=== PATIENT | female | born 1995 | race American Indian/Alaskan Native ===

== ENCOUNTER 2017-03-22 00:34 | Emergency (ER) | payer MEDICAID, OTHER ==
[2017-03-22 01:16] VITALS: BP 122/70
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
== END 2017-03-22 02:21 | disposition home or self-care (01) ==
LOC: DL.ED 00:34
DX: S00.03XA Contusion of scalp, initial encounter (principal); M25.511 Pain in right shoulder; Y04.0XXA Assault by unarmed brawl or fight, initial encounter
CPT/HCPCS: 99283

== ENCOUNTER 2020-07-24 19:53 | Emergency (ER) | payer OTHER, MEDICAID ==
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
[2020-07-25] MEDS ORDERED: Ibuprofen 600 MG Tab PO ONE (00:32)
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
== END 2020-07-25 00:48 | disposition home or self-care (01) ==
LOC: DL.ED 19:53
DX: M62.838 Other muscle spasm (principal); Z88.2 Allergy status to sulfonamides; V49.49XA Driver injured in collision with other motor vehicles in traffic accident, initial encounter
CPT/HCPCS: 72020; 81025; 99284-25

== ENCOUNTER 2020-07-31 18:38 | Emergency (ER) | payer MEDICAID ==
[2020-07-31 19:06] VITALS: BP 114/60; PULSE 108
--- NOTE | 2020-07-31 19:17 | EDM.PDOC ---
ED HPI GENERAL MEDICAL PROBLEM - General Chief Complaint: Gastrointestinal Problem Stated Complaint: FOOD POISONING Time Seen by Provider: 07/31/20 18:56 Source of Information: Reports: Patient History Limitations: Reports: No Limitations - History of Present Illness INITIAL COMMENTS - FREE TEXT/NARRATIVE: This 25 yo female patient reports to the ED due to not feeling well since last night. The patient believes she got food poisoning from eating at [facility] last night. The patient reports she has had a fever of 100-101 throughout the day and has taken 1 dose of Acetaminophen (at noon). The patient has not attempted to get seen in the clinic for her current symptoms. The patient was seen for kidney stones 2 days ago and is currently on Toradol/Flomax. 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 - Related Data Allergies Allergy/AdvReac Type Severity Reaction Status Date / Time Sulfa (Sulfonamide Allergy Other Verified 07/29/20 17:00 Antibiotics) Past Medical History - Past Health History Medical/Surgical History: Denies Medical/Surgical History HEENT History: Reports: None Cardiovascular History: Reports: None Respiratory History: Reports: None Gastrointestinal History: Reports: None Genitourinary History: Reports: None 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 Musculoskeletal History: Reports: None Neurological History: Reports: None Psychiatric History: Reports: None Endocrine/Metabolic History: Reports: None Hematologic History: Reports: Anemia Other Hematologic History: durning Immunologic History: Reports: None Oncologic (Cancer) History: Reports: None Dermatologic History: Reports: None - Infectious Disease History Infectious Disease History: Reports: Chicken Pox - Past Surgical History Head Surgeries/Procedures: Reports: None Dermatological Surgical History: Reports: None Social & Family History - Tobacco Use Tobacco Use Status *Q: Unknown Ever Used Tobacco - Caffeine Use Caffeine Use: Reports: None - Recreational Drug Use Recreational Drug Use: No ED ROS GENERAL - Review of Systems Review Of Systems: Comprehensive ROS is negative, except as noted in HPI. ED EXAM, GI/ABD - Physical Exam Exam: See Below Exam Limited By: No Limitations General Appearance: Alert, WD/WN, Mild Distress, Obese Eyes: Bilateral: Normal Appearance, EOMI Ears: Normal External Exam, Normal Canal, Hearing Grossly Normal, Normal TMs Nose: Normal Inspection, Normal Mucosa, No Blood Throat/Mouth: Normal Inspection, Normal Lips, Normal Teeth, Normal Gums, Normal Oropharynx, Normal Voice, No Airway Compromise Head: Atraumatic, Normocephalic Neck: Normal Inspection, Supple, Non-Tender, Full Range of Motion Respiratory/Chest: No Respiratory Distress, Lungs Clear, Normal Breath Sounds, No Accessory Muscle Use, Chest Non-Tender Cardiovascular: Normal Peripheral Pulses, Regular Rate, Rhythm, No Edema, No Gallop, No JVD, No Murmur, No Rub GI/Abdominal Exam: Normal Bowel Sounds, Soft, Non-Tender, No Organomegaly, No Distention, No Abnormal Bruit, No Mass, Pelvis Stable, Other (Obese) (Female) Exam: Deferred Rectal (Female) Exam: Deferred Back Exam: Normal Inspection, Full Range of Motion, NT Extremities: Normal Inspection, Normal Range of Motion, Non-Tender, Normal Capillary Refill, No Pedal Edema Neurological: Alert, Oriented, CN II-XII Intact, Normal Cognition, Normal Gait, Normal Reflexes, No Motor/Sensory Deficits Psychiatric: Normal Affect, Normal Mood Skin Exam: Warm, Dry, Intact, Normal Color, No Rash Lymphatic: No Adenopathy Course - Vital Signs Last Recorded V/S: Last Vital Signs Temp 36.4 C 07/31/20 19:03 Pulse 108 H 07/31/20 19:03 Resp 16 07/31/20 19:03 BP 114/60 07/31/20 19:03 Pulse Ox 98 07/31/20 19:03 - Orders/Labs/Meds Orders: Active Orders 24 hr Category Date Time Status CULTURE URINE [RM] Stat Lab 07/31/20 20:16 Received Labs: Laboratory Tests 07/31/20 07/31/20 07/31/20 Range/Units 19:25 19:25 20:16 WBC 14.4 H (5.0-10.0) 10^3/uL RBC 4.68 (4.2-5.4) 10^6/uL Hgb 12.5 (12.0-16.0) g/dL Hct 37.7 (37.0-47.0) % MCV 80.6 (80-100) fL MCH 26.7 L (27.0-34.0) pg MCHC 33.2 (33.0-35.0) g/dL Plt Count 279 (150-450) 10^3/uL Neut % (Auto) 85.6 H (42.2-75.2) % Lymph % (Auto) 8.7 L (20.5-50.1) % [place] % (Auto) 5.5 (2-8) % Eos % (Auto) 0.1 L (1.0-3.0) % Baso % (Auto) 0.1 (0.0-1.0) % Sodium 133 L (136-145) mmol/L Potassium 3.6 (3.5-5.1) mmol/L Chloride 99 (98-107) mmol/L Carbon Dioxide 21 (21-32) mmol/L Anion Gap 16.6 H (7-13) mEq/L BUN 13 (7-18) mg/dL Creatinine 1.31 H (0.55-1.02) mg/dL Est Cr Clr Drug Dosing 53.83 mL/min Estimated GFR (MDRD) 49 BUN/Creatinine Ratio 9.9 (No establ ref range) Glucose 107 H (74-99) mg/dL Calcium 9.1 (8.5-10.1) mg/dL Total Bilirubin 1.8 H (0.2-1.0) mg/dL AST 16 (15-37) U/L ALT 32 (14-59) U/L Alkaline Phosphatase 103 (46-116) U/L Total Protein 8.2 (6.4-8.2) g/dL Albumin 3.9 (3.4-5.0) g/dL Globulin 4.3 Albumin/Globulin Ratio 0.9 Urine Color Dark yellow (YELLOW) Urine Appearance Slightly cloudy (CLEAR) Urine pH 6.0 (5.0-9.0) Ur Specific [place] >= 1.030 (1.005-1.030) Urine Protein 100 H (NEGATIVE) Urine Glucose (UA) Negative (NEGATIVE) Urine Ketones 80 H (NEGATIVE) Urine Occult Blood Trace-lysed H (NEGATIVE) Urine Nitrite Negative (NEGATIVE) Urine Bilirubin Small H (NEGATIVE) Urine Urobilinogen 2.0 H (0.2-1.0) mg/dL Ur Leukocyte Esterase Trace H (NEGATIVE) Urine RBC 0-5 /HPF Urine WBC 50-75 H (0-5/HPF) /HPF Ur Epithelial Cells Many H (NOT SEEN) /HPF Urine Bacteria Many H (0-FEW/HPF) /HPF Urine Mucus Moderate H (NOT SEEN) /LPF Urine Other See note Urine HCG, Qual 07/31/20 Range/Units 20:16 WBC (5.0-10.0) 10^3/uL RBC (4.2-5.4) 10^6/uL Hgb (12.0-16.0) g/dL Hct (37.0-47.0) % MCV (80-100) fL MCH (27.0-34.0) pg MCHC (33.0-35.0) g/dL Plt Count (150-450) 10^3/uL Neut % (Auto) (42.2-75.2) % Lymph % (Auto) (20.5-50.1) % [place] % (Auto) (2-8) % Eos % (Auto) (1.0-3.0) % Baso % (Auto) (0.0-1.0) % Sodium (136-145) mmol/L Potassium (3.5-5.1) mmol/L Chloride (98-107) mmol/L Carbon Dioxide (21-32) mmol/L Anion Gap (7-13) mEq/L BUN (7-18) mg/dL Creatinine (0.55-1.02) mg/dL Est Cr Clr Drug Dosing mL/min Estimated GFR (MDRD) BUN/Creatinine Ratio (No establ ref range) Glucose (74-99) mg/dL Calcium (8.5-10.1) mg/dL Total Bilirubin (0.2-1.0) mg/dL AST (15-37) U/L ALT (14-59) U/L Alkaline Phosphatase (46-116) U/L Total Protein (6.4-8.2) g/dL Albumin (3.4-5.0) g/dL Globulin Albumin/Globulin Ratio Urine Color (YELLOW) Urine Appearance (CLEAR) Urine pH (5.0-9.0) Ur Specific [place] (1.005-1.030) Urine Protein (NEGATIVE) Urine Glucose (UA) (NEGATIVE) Urine Ketones (NEGATIVE) Urine Occult Blood (NEGATIVE) Urine Nitrite (NEGATIVE) Urine Bilirubin (NEGATIVE) Urine Urobilinogen (0.2-1.0) mg/dL Ur Leukocyte Esterase (NEGATIVE) Urine RBC /HPF Urine WBC (0-5/HPF) /HPF Ur Epithelial Cells (NOT SEEN) /HPF Urine Bacteria (0-FEW/HPF) /HPF Urine Mucus (NOT SEEN) /LPF Urine Other Urine HCG, Qual Negative Meds: Medications Discontinued Medications Generic Name Dose Route Start Last Admin Trade Name Freq PRN Reason Stop Dose Admin Cephalexin 500 mg 07/31/20 20:44 Keflex PO 07/31/20 20:45 ONETIME ONE Departure - Departure Time of Disposition: 20:45 Disposition: Home, Self-Care 01 Condition: Fair Clinical Impression: UTI (urinary tract infection) Qualifiers: Urinary tract infection type: site unspecified Hematuria presence: with hematuria Qualified Code(s): N39.0 - Urinary tract infection, site not specified; R31.9 - Hematuria, unspecified - Discharge Information *PRESCRIPTION DRUG MONITORING PROGRAM REVIEWED*: Not Applicable *COPY OF PRESCRIPTION DRUG MONITORING REPORT IN PATIENT KAYA: Not Applicable Instructions: Urinary Tract Infection, Adult, [id number] Forms: ED Department Discharge Care Plan Goals: The patient was advised of the examination and lab results during the visit. The patient was given an oral dose of Keflex while in the ED. The patient was discharged with a script for Keflex (500 mg) #10 to take 1 by mouth 2 times per day for 7 days. If the patient has any additional symptoms or concerns, the patient should follow-up with her primary care facility or return to the emergency department. Sepsis Event Note (ED) - Evaluation Sepsis Screening Result: No Definite Risk - Focused Exam Vital Signs: Vital Signs Temp Pulse Resp BP Pulse Ox 07/31/20 19:03 36.4 C 108 H 16 114/60 98 - My Orders Last 24 Hours: My Active Orders 07/31/20 20:16 CULTURE URINE [RM] Stat - Assessment/Plan Last 24 Hours: My Active Orders 07/31/20 20:16 CULTURE URINE [RM] Stat
[2020-07-31 19:47] LABS: ANION GAP 16.6 mEq/L (7-13)
[2020-07-31] MEDS ORDERED: Cephalexin 500 MG Cap PO ONE (20:44)
== END 2020-07-31 20:59 | disposition home or self-care (01) ==
LOC: DL.ED 18:38
DX: N39.0 Urinary tract infection, site not specified (principal); R31.9 Hematuria, unspecified; Z88.2 Allergy status to sulfonamides
CPT/HCPCS: 36415; 80053; 81001; 81025; 85025; 87086; 87088; 87186; 99283; A9270

== ENCOUNTER 2021-01-23 17:22 | Emergency (ER) | payer MEDICAID ==
[2021-01-23 17:48] VITALS: BP 146/69; PULSE 72
[2021-01-23] MEDS ORDERED: Iopamidol 612 MG/ML 100 ML Bottle IVPUSH ONE (18:46)
--- NOTE | 2021-01-23 18:59 | EDM.PDOC ---
"Scribed by Megan Garrison 01/23/21 1828 for Maddie Morales MD <Maddie Morales - Last Filed: 01/23/21 18:59> ED HPI GENERAL MEDICAL PROBLEM - General Chief Complaint: Genitourinary Problem Stated Complaint: POSSIBLE MISCARRIAGE Time Seen by Provider: 01/23/21 17:54 Source of Information: Reports: Patient, RN, RN Notes Reviewed History Limitations: Reports: No Limitations - History of Present Illness INITIAL COMMENTS - FREE TEXT/NARRATIVE: Patient presents to ED by POV stating that on 01/17/21 she had a gush of clear vaginal fluid. On 01/18/21 she had red blood with clots. Today she has had cramps and brownish blood, nausea and right lower abdominal sharp pain. LMP was 4 months ago, irregular since IUD placed in August 2019. Onset: Gradual Duration: Getting Worse Location: Reports: Abdomen Quality: Reports: Ache Severity: Moderate Improves with: Reports: None Worsens with: Reports: None Associated Symptoms: Reports: No Other Symptoms - Related Data Allergies Allergy/AdvReac Type Severity Reaction Status Date / Time Sulfa (Sulfonamide Allergy Other Verified 01/23/21 17:37 Antibiotics) Home Meds: Home Meds . 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 Musculoskeletal History: Reports: None Neurological History: Reports: None Psychiatric History: Reports: None Endocrine/Metabolic History: Reports: None Hematologic History: Reports: Anemia Other Hematologic History: durning Immunologic History: Reports: None Oncologic (Cancer) History: Reports: None Dermatologic History: Reports: None - Infectious Disease History Infectious Disease History: Reports: Chicken Pox - Past Surgical History Head Surgeries/Procedures: Reports: None Dermatological Surgical History: Reports: None Social & Family History - Family History Family Medical History: No Pertinent Family History - Caffeine Use Caffeine Use: Reports: None - Living Situation & Occupation Living situation: Reports: , with Family Occupation: Employed ED ROS GENERAL - Review of Systems Review Of Systems: Comprehensive ROS is negative, except as noted in HPI. ED EXAM, RENAL/ - Physical Exam Exam: See Below Exam Limited By: No Limitations General Appearance: Alert, WD/WN, No Apparent Distress, Obese Throat/Mouth: Normal Voice, No Airway Compromise Head: Atraumatic, Normocephalic Neck: Normal Inspection Respiratory/Chest: No Respiratory Distress, Lungs Clear, Normal Breath Sounds, No Accessory Muscle Use, Chest Non-Tender Cardiovascular: Regular Rate, Rhythm, No Edema GI/Abdominal: Normal Bowel Sounds, Soft, Non-Tender (Female) Exam: Deferred Rectal (Female) Exam: Deferred Back Exam: Normal Inspection, Full Range of Motion. No: CVA Tenderness (L), CVA Tenderness (R) Extremities: Normal Inspection Neurological: Alert, Oriented, No Motor/Sensory Deficits Psychiatric: Normal Affect, Normal Mood Skin Exam: Warm, Dry, Intact, Normal Color, No Rash Course - Orders/Labs/Meds Labs: Blood Type: A positive Departure - Departure Disposition: Home, Self-Care 01 Clinical Impression: Bladder calculus, Renal calculus, left Acute cystitis Qualifiers: Hematuria presence: with hematuria Qualified Code(s): N30.01 - Acute cystitis with hematuria - Discharge Information Instructions: Kidney Stones, [id number], Dietary Guidelines to Help Prevent Kidney Stones Forms: ED Department Discharge Additional Instructions: Rx: Flomax Rx: ketorolac Rx: amoxicillin 1.) Take all of your antibiotic until gone, even as symptoms improve. 2.) Drink plenty of water to stay hydrated and flush out your kidneys/bladder. 3.) Follow up with primary care provider regarding IUD and contraception management. 4.) Follow up with primary care provider, or return to the emergency department, with inability to urinate, fever, or shaking chills. <Randi Malone - Last Filed: 01/23/21 20:54> Course - Vital Signs Last Recorded V/S: Last Vital Signs Temp 97.3 F 01/23/21 17:37 Pulse 72 01/23/21 17:37 Resp 18 01/23/21 17:37 BP 146/69 H 01/23/21 17:37 Pulse Ox 99 01/23/21 17:37 - Orders/Labs/Meds Orders: Active Orders 24 hr Category Date Time Status CULTURE URINE [RM] Stat Lab 01/23/21 17:35 Received Labs: Laboratory Tests 01/23/21 01/23/21 01/23/21 Range/Units 17:35 17:35 18:13 WBC 7.1 (5.0-10.0) 10^3/uL RBC 4.76 (4.2-5.4) 10^6/uL Hgb 12.6 (12.0-16.0) g/dL Hct 39.2 (37.0-47.0) % MCV 82.4 (80-100) fL MCH 26.5 L (27.0-34.0) pg MCHC 32.1 L (33.0-35.0) g/dL Plt Count 366 D (150-450) 10^3/uL Neut % (Auto) 62.4 (42.2-75.2) % Lymph % (Auto) 31.1 (20.5-50.1) % [place] % (Auto) 4.5 (2-8) % Eos % (Auto) 1.6 (1.0-3.0) % Baso % (Auto) 0.4 (0.0-1.0) % HCG, Quant (0-6) mIU/mL Urine Color Yellow (YELLOW) Urine Appearance Slightly cloudy (CLEAR) Urine pH 5.5 (5.0-9.0) Ur Specific [place] >= 1.030 (1.005-1.030) Urine Protein Negative (NEGATIVE) Urine Glucose (UA) Negative (NEGATIVE) Urine Ketones Negative (NEGATIVE) Urine Occult Blood Moderate H (NEGATIVE) Urine Nitrite Negative (NEGATIVE) Urine Bilirubin Negative (NEGATIVE) Urine Urobilinogen 1.0 (0.2-1.0) mg/dL Ur Leukocyte Esterase Trace H (NEGATIVE) Urine RBC 0-5 /HPF Urine WBC 30-40 H (0-5/HPF) /HPF Ur Epithelial Cells Moderate H (NOT SEEN) /HPF Urine Bacteria Moderate H (0-FEW/HPF) /HPF Urine Mucus Moderate H (NOT SEEN) /LPF Urine HCG, Qual Negative 01/23/21 Range/Units 18:13 WBC (5.0-10.0) 10^3/uL RBC (4.2-5.4) 10^6/uL Hgb (12.0-16.0) g/dL Hct (37.0-47.0) % MCV (80-100) fL MCH (27.0-34.0) pg MCHC (33.0-35.0) g/dL Plt Count (150-450) 10^3/uL Neut % (Auto) (42.2-75.2) % Lymph % (Auto) (20.5-50.1) % [place] % (Auto) (2-8) % Eos % (Auto) (1.0-3.0) % Baso % (Auto) (0.0-1.0) % HCG, Quant < 1 (0-6) mIU/mL Urine Color (YELLOW) Urine Appearance (CLEAR) Urine pH (5.0-9.0) Ur Specific [place] (1.005-1.030) Urine Protein (NEGATIVE) Urine Glucose (UA) (NEGATIVE) Urine Ketones (NEGATIVE) Urine Occult Blood (NEGATIVE) Urine Nitrite (NEGATIVE) Urine Bilirubin (NEGATIVE) Urine Urobilinogen (0.2-1.0) mg/dL Ur Leukocyte Esterase (NEGATIVE) Urine RBC /HPF Urine WBC (0-5/HPF) /HPF Ur Epithelial Cells (NOT SEEN) /HPF Urine Bacteria (0-FEW/HPF) /HPF Urine Mucus (NOT SEEN) /LPF Urine HCG, Qual Meds: Medications Discontinued Medications Generic Name Dose Route Start Last Admin Trade Name Wojciech PRN Reason Stop Dose Admin Iopamidol 100 ml 01/23/21 18:46 01/23/21 19:13 Iopamidol 612 Mg/Ml 100 Ml Bottle IVPUSH 01/23/21 18:47 100 ml ONETIME ONE Administration - Radiology Interpretation Free Text/Narrative:: [facility] Final Radiology Report Call: [phone] assistance Online chat: [email or web address] Name: CHARLES US Age: 25Years F Date: 01/23/2021 SSN: -- : [id number] Study: CT ABDOMEN PELVIS W CONT Requesting Physician: MADDIE MORALES Images: [id number] Addl Studies: Provided Clinical History: RLQ pain, vaginal bleeding, negative Contrast: With Contrast Medium: [id number] Contrast Amount: 100 mL Contrast Method: Intravenous (IV) Page 1 of 2 PROCEDURE INFORMATION: Exam: CT Abdomen And Pelvis With Contrast Exam date and time: 01/23/2021 7:41 PM Age: 25 years old Clinical indication: Other: Low abd pain; Additional info: Rlq pain, vaginal bleeding, negative TECHNIQUE: Imaging protocol: Computed tomography of the abdomen and pelvis with contrast. Radiation optimization: All CT scans at this facility use at least one of these dose optimization techniques: automated exposure control; mA and/or kV adjustment per patient size (includes targeted exams where dose is matched to clinical indication); or iterative reconstruction. Contrast material: [id number]; Contrast volume: 100 ml; Contrast route: INTRAVENOUS (IV); COMPARISON: CT Abdomen Pelvis wo Cont 07/29/2020 6:15 PM FINDINGS: Liver: ThereThere is moderate fatty liver replacement. No suspicious hepatic mass. Gallbladder and bile ducts: No calcified gallstones. No ductal dilation. Pancreas: The pancreatic parenchyma is normal in bulk and sharply marginated. Duct is not dilated. No calcifications, masses, or abnormal fluid collections. Spleen: Spleen is normal in size. No mass or fluid collection. Adrenal glands: There are no adrenal masses. Kidneys and ureters: Normal in parenchymal bulk. No hydronephrosis or asymmetric perinephric stranding. No solid masses. Nonobstructing 3 mm calcification in the left renal sinus. No ureteral calculi. Stomach and bowel: No significant abnormalities of the stomach. There are no dilated or thickened small bowel loops. Gas and stool are seen in the colon to the rectum. No mass. Appendix: The appendix is seen. It is normal. CHARLES US | Final Radiology Report CONFIDENTIALITY STATEMENT This report is intended only for use by the referring physician, and only in accordance with law. If you received this in error, call [phone]. Page 2 of 2 Intraperitoneal space: No ascites. No abscess. No inflammation within the intra- abdominal fat. No pneumoperitoneum. No mass. No ascites. No abscess. No inflammation within the intra-abdominal fat. No pneumoperitoneum. No mass. Vasculature: No aneurysm. Lymph nodes: There are no enlarged celiac, mesenteric, periportal, extraperitone al or inguinal lymph nodes. Urinary bladder: 4 mm calcification which was not present on the previous study resides in the bladder lumen along the posterior left paramidline bladder wall. Bladder otherwise unremarkable. Reproductive: The uterus and ovaries are within normal limits. There are no adenexal masses. 3.5 cm benign functional cyst left ovary requiring no further workup according to guidelines. There is an intrauterine device askew within the lower uterine segment and cervix. It may even extend into the cephalad vagina. 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 No dislocation. There are no suspicious lytic or osteosclerotic lesions. Soft tissues: There is a fat-containing umbilical hernia. IMPRESSION: 1. 4 mm bladder calculus. Urinary bladder otherwise unremarkable. 2. There is an intrauterine device askew within the lower uterine segment and cervix. It may even extend into the cephalad vagina. It is in similar position as before. Thank you for allowing us to participate in the care of your patient. Dictated and Authenticated by: Onur Gallagher MD 01/23/2021 8:20 PM Central Time ([place] & [place]) Departure - Departure Time of Disposition: 20:49 Condition: Good - Discharge Information *PRESCRIPTION DRUG MONITORING PROGRAM REVIEWED*: Not Applicable *COPY OF PRESCRIPTION DRUG MONITORING REPORT IN PATIENT KAYA: Not Applicable Sepsis Event Note (ED) - Focused Exam Vital Signs: Vital Signs Temp Pulse Resp BP Pulse Ox 01/23/21 17:37 97.3 F 72 18 146/69 H 99 I have read and agree with the documentation that has been completed regarding this visit. By signing this record, I attest that the documentation was completed in my physical presence and is an accurate record of the encounter."
--- NOTE | 2021-01-23 20:21 | CT ---
PROCEDURE INFORMATION: Exam: CT Abdomen And Pelvis With Contrast Exam date and time: 01/23/2021 7:41 PM Age: 25 years old Clinical indication: Other: Low abd pain; Additional info: Rlq pain, vaginal bleeding, negative TECHNIQUE: Imaging protocol: Computed tomography of the abdomen and pelvis with contrast. Radiation optimization: All CT scans at this facility use at least one of these dose optimization techniques: automated exposure control; mA and/or kV adjustment per patient size (includes targeted exams where dose is matched to clinical indication); or iterative reconstruction. Contrast material: [id number]; Contrast volume: 100 ml; Contrast route: INTRAVENOUS (IV); COMPARISON: CT Abdomen Pelvis wo Cont 07/29/2020 6:15 PM FINDINGS: Liver: ThereThere is moderate fatty liver replacement. No suspicious hepatic mass. Gallbladder and bile ducts: No calcified gallstones. No ductal dilation. Pancreas: The pancreatic parenchyma is normal in bulk and sharply marginated. Duct is not dilated. No calcifications, masses, or abnormal fluid collections. Spleen: Spleen is normal in size. No mass or fluid collection. Adrenal glands: There are no adrenal masses. Kidneys and ureters: Normal in parenchymal bulk. No hydronephrosis or asymmetric perinephric stranding. No solid masses. Nonobstructing 3 mm calcification in the left renal sinus. No ureteral calculi. Stomach and bowel: No significant abnormalities of the stomach. There are no dilated or thickened small bowel loops. Gas and stool are seen in the colon to the rectum. No mass. Appendix: The appendix is seen. It is normal. Intraperitoneal space: No ascites. No abscess. No inflammation within the intra-abdominal fat. No pneumoperitoneum. No mass. No ascites. No abscess. No inflammation within the intra-abdominal fat. No pneumoperitoneum. No mass. Vasculature: No aneurysm. Lymph nodes: There are no enlarged celiac, mesenteric, periportal, extraperitoneal or inguinal lymph nodes. Urinary bladder: 4 mm calcification which was not present on the previous study resides in the bladder lumen along the posterior left paramidline bladder wall. Bladder otherwise unremarkable. Reproductive: The uterus and ovaries are within normal limits. There are no adenexal masses. 3.5 cm benign functional cyst left ovary requiring no further workup according to guidelines. There is an intrauterine device askew within the lower uterine segment and cervix. It may even extend into the cephalad vagina. 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 No dislocation. There are no suspicious lytic or osteosclerotic lesions. Soft tissues: There is a fat-containing umbilical hernia. IMPRESSION: 1. 4 mm bladder calculus. Urinary bladder otherwise unremarkable. 2. There is an intrauterine device askew within the lower uterine segment and cervix. It may even extend into the cephalad vagina. It is in similar position as before.
[2021-01-23] MEDS ORDERED: Tamsulosin 0.4 MG Cap.ER PO ONE (20:40)
[2021-01-23] MEDS ORDERED: Ketorolac 30 MG/ML SDV IVPUSH ONE (20:41)
[2021-01-23] MEDS ORDERED: Amoxicillin 500 MG Cap PO ONE (20:45)
== END 2021-01-23 21:00 | disposition home or self-care (01) ==
LOC: DL.ED 17:22
DX: N30.01 Acute cystitis with hematuria (principal); N21.0 Calculus in bladder; N20.0 Calculus of kidney; E66.9 Obesity, unspecified; Z68.42 Body mass index [BMI] 45.0-49.9, adult; Z88.2 Allergy status to sulfonamides
CPT/HCPCS: 36415; 74177; 81001; 81025; 84702; 85025; 87086; 96374; 99284; A9270; J1885; Q9967

== ENCOUNTER 2022-01-05 11:20 | Inpatient (IN) | payer MEDICAID ==
[2022-01-05] MEDS ORDERED: Lidocaine 1% 30 ML SDV INJECT PRN (12:37)
[2022-01-05] MEDS ORDERED: Tranexamic Acid 1,000 MG in Sodium Chloride 0.9% 100 ML IV PRN (12:37)
[2022-01-05] MEDS ORDERED: Lactated Ringers 1,000 ML IV ONE (12:37)
[2022-01-05] MEDS ORDERED: Carboprost Tromethamine 250 MCG/1 ML Amp IM PRN (12:37)
[2022-01-05] MEDS ORDERED: Misoprostol 400 MCG (4 X 100 MCG TAB) RECTAL PRN (12:37)
[2022-01-05] MEDS ORDERED: Sodium Chloride 0.9% 10 ML Syringe FLUSH PRN ×2 (12:37→16:34)
[2022-01-05] MEDS ORDERED: Methylergonovine 0.2 MG/1 ML Amp IM PRN (12:37)
[2022-01-05] MEDS ORDERED: Ondansetron 4 MG/2 ML SDV IVPUSH PRN (12:37)
[2022-01-05] MEDS ORDERED: Acetaminophen 325 MG Tab PO PRN (12:37)
[2022-01-05] MEDS ORDERED: Lactated Ringers 1,000 ML IV SCH (12:45)
[2022-01-05] MEDS ORDERED: fentaNYL 100 MCG/2 ML SDV ONE (13:32)
[2022-01-05] MEDS ORDERED: Sodium Bicarbonate 4.2% 2.5 MEQ/5 ML SDV ONE ×2 (13:32)
[2022-01-05] MEDS ORDERED: Sodium Chloride 0.9% 20 ML SDV ONE (13:32)
[2022-01-05] MEDS ORDERED: EPINEPHrine 1 MG/ML SDV ONE ×2 (13:32)
[2022-01-05] MEDS ORDERED: fentaNYL 100 MCG/2 ML SDV IV ONE (13:32)
[2022-01-05] MEDS: Oxytocin/Normal Saline 30 UNIT/500 ML BAG IV SCH ×2 (15:02→18:25)
[2022-01-05] MEDS ORDERED: Docusate Sodium 100 MG Cap PO PRN (16:34)
[2022-01-05] MEDS ORDERED: Oxytocin 10 Units/1 ML SDV IM PRN (16:34)
[2022-01-05] MEDS ORDERED: Zolpidem 5 MG Tab PO PRN (16:34)
[2022-01-05] MEDS ORDERED: Benzocaine/Menthol 20%-0.5% Spray 78 GM Cannister TOP PRN (16:34)
[2022-01-05] MEDS ORDERED: Simethicone 80 MG Tab.Chew PO PRN (16:34)
[2022-01-05] MEDS: Ibuprofen 800 MG Tab PO PRN (19:40)
[2022-01-05] MEDS: Methylergonovine 0.2 MG Tab PO SCH (20:10)
[2022-01-06] MEDS: Ibuprofen 800 MG Tab PO PRN ×2 (08:53→20:53)
[2022-01-06] MEDS ORDERED: Prenatal Multivitamin with Calcium/Folic Acid/Iron Tab PO SCH (09:00)
[2022-01-06] MEDS: Methylergonovine 0.2 MG Tab PO SCH ×2 (09:47→14:51)
[2022-01-07 10:20] VITALS: BP 134/83; PULSE 88
== END 2022-01-07 09:45 | disposition home or self-care (01) | DRG 806 ==
LOC: DL.OBCHECK 11:20 → DL.OB 12:37 → OBSVTOIN 16:19 → DL.OB 16:19
PROVIDERS: ADMIT Family Medicine; ATTEND Family Medicine
PROC: 10E0XZZ Delivery of Products of Conception, External Approach (ICD-10-PCS; principal; 2022-01-05)
PROC: 10907ZC Drainage of Amniotic Fluid, Therapeutic from Products of Conception, Via Natural or Artificial Opening (ICD-10-PCS; 2022-01-05)
PROC: 4A1HXCZ Monitoring of Products of Conception, Cardiac Rate, External Approach (ICD-10-PCS; 2022-01-05)
PROC: 10H07YZ Insertion of Other Device into Products of Conception, Via Natural or Artificial Opening (ICD-10-PCS; 2022-01-05)
PROC: 00HU33Z Insertion of Infusion Device into Spinal Canal, Percutaneous Approach (ICD-10-PCS; 2022-01-05)
PROC: 3E0R3BZ Introduction of Anesthetic Agent into Spinal Canal, Percutaneous Approach (ICD-10-PCS; 2022-01-05)
DX: O14.04 Mild to moderate pre-eclampsia, complicating childbirth (principal); D62 Acute posthemorrhagic anemia; Z37.0 Single live birth; Z3A.38 38 weeks gestation of pregnancy; O72.1 Other immediate postpartum hemorrhage; O99.02 Anemia complicating childbirth; O99.214 Obesity complicating childbirth; Z20.822 Contact with and (suspected) exposure to COVID-19
CPT/HCPCS: 36415; 81003; 82565; 82570; 83615; 84156; 84450; 84460; 84520; 84550; 85007; 85027; A9270-GY; J0171; J2405; J2590; J3010; J7120; U0002

== ENCOUNTER 2022-05-25 10:51 | Emergency (ER) | payer MEDICAID ==
[2022-06-21 09:47] LABS: SODIUM,NA 140 mmol/L (136-145)
[2022-06-21 09:48] LABS: ANION GAP 13.2 mEq/L (7-13); CHLORIDE,CL 104 mmol/L (98-107); ESTIMATED GFR 122 mL/min (>=60)
[2022-06-21 09:49] LABS: PTT,PARTIAL THROMBOPLSTIN TIME 27.1 SEC (22.0-34.0)
== END 2022-05-25 11:55 | disposition home or self-care (01) ==
LOC: DL.ED 10:51
DX: N99.820 Postprocedural hemorrhage of a genitourinary system organ or structure following a genitourinary system procedure (principal)
CPT/HCPCS: 36415; 80053; 85025; 85610; 85730; 99284